=== PATIENT | male | born 1985 | race Caucasian/White ===

== ENCOUNTER 2016-11-27 15:24 | Outpatient (CLI) | payer OTHER ==
--- NOTE | 2016-11-27 16:03 | XRay Report ---
CHEST 2 VIEWS INDICATION: Left mastoiditis. Needs hyperbaric oxygen therapy. COMPARISON: None similar at this institution. FINDINGS: PA and lateral chest radiographs demonstrate normal cardiomediastinal silhouette and clear lungs, given the inspiration. Right upper extremity PICC tip along the distal SVC. Intact bones. CONCLUSION: No acute disease in the chest. Thank you for the opportunity to participate in this patient's care.
== END 2016-11-27 15:25 | disposition home or self-care (01) ==
LOC: XRAY 15:24
PROVIDERS: ATTEND Surgery
DX: H70.92 Unspecified mastoiditis, left ear (principal)
CPT/HCPCS: 71020; 99204; G0463

== ENCOUNTER 2016-11-29 10:12 | Outpatient (CLI) | payer OTHER | END 2016-11-29 10:13 | disposition home or self-care (01) | LOC: WOUND 10:12 | PROVIDERS: ATTEND Surgery | DX: M86.68 Other chronic osteomyelitis, other site (principal); Z71.6 Tobacco abuse counseling; F17.210 Nicotine dependence, cigarettes, uncomplicated | CPT/HCPCS: G0277 ×2; 99183 ==

== ENCOUNTER 2016-11-30 10:00 | Outpatient (CLI) | payer OTHER | END 2016-11-30 10:01 | disposition home or self-care (01) | LOC: WOUND 10:00 | PROVIDERS: ATTEND Internal Medicine | DX: S01.302A Unspecified open wound of left ear, initial encounter (principal); M86.68 Other chronic osteomyelitis, other site; F17.210 Nicotine dependence, cigarettes, uncomplicated; F15.90 Other stimulant use, unspecified, uncomplicated; Z71.6 Tobacco abuse counseling; X58.XXXA Exposure to other specified factors, initial encounter; Y93.89 Activity, other specified; Y92.89 Other specified places as the place of occurrence of the external cause; Y99.8 Other external cause status | CPT/HCPCS: G0277 ×2; 99183 ==

== ENCOUNTER 2016-12-01 10:12 | Outpatient (CLI) | payer OTHER | END 2016-12-01 10:13 | disposition home or self-care (01) | LOC: WOUND 10:12 | PROVIDERS: ATTEND Podiatrist | DX: M86.68 Other chronic osteomyelitis, other site (principal); F17.210 Nicotine dependence, cigarettes, uncomplicated; Z71.6 Tobacco abuse counseling | CPT/HCPCS: G0277 ×2; 99183 ==

== ENCOUNTER 2016-12-04 09:59 | Outpatient (CLI) | payer OTHER | END 2016-12-04 10:00 | disposition home or self-care (01) | LOC: WOUND 09:59 | PROVIDERS: ATTEND Internal Medicine | DX: M86.68 Other chronic osteomyelitis, other site (principal); F17.210 Nicotine dependence, cigarettes, uncomplicated | CPT/HCPCS: G0277 ×2; 99183 ==

== ENCOUNTER 2016-12-05 09:45 | Outpatient (CLI) | payer OTHER | END 2016-12-05 09:46 | disposition home or self-care (01) | LOC: WOUND 09:45 | PROVIDERS: ATTEND Surgery | DX: M86.68 Other chronic osteomyelitis, other site (principal); F17.210 Nicotine dependence, cigarettes, uncomplicated | CPT/HCPCS: G0277 ×2; 99183 ==

== ENCOUNTER 2016-12-06 10:04 | Outpatient (CLI) | payer OTHER | END 2016-12-06 10:05 | disposition home or self-care (01) | LOC: WOUND 10:04 | PROVIDERS: ATTEND Surgery | DX: M86.68 Other chronic osteomyelitis, other site (principal); Z71.6 Tobacco abuse counseling; F17.210 Nicotine dependence, cigarettes, uncomplicated | CPT/HCPCS: G0277 ×2; 99183 ==

== ENCOUNTER 2016-12-07 09:59 | Outpatient (CLI) | payer OTHER | END 2016-12-07 10:00 | disposition home or self-care (01) | LOC: WOUND 09:59 | PROVIDERS: ATTEND Internal Medicine | DX: M86.68 Other chronic osteomyelitis, other site (principal); Z71.6 Tobacco abuse counseling; F17.210 Nicotine dependence, cigarettes, uncomplicated | CPT/HCPCS: G0277 ×2; 99183 ==

== ENCOUNTER 2016-12-08 09:58 | Outpatient (CLI) | payer OTHER | END 2016-12-08 09:59 | disposition home or self-care (01) | LOC: WOUND 09:58 | PROVIDERS: ATTEND Podiatrist | DX: M86.68 Other chronic osteomyelitis, other site (principal); F17.210 Nicotine dependence, cigarettes, uncomplicated | CPT/HCPCS: G0277 ×2; 99183 ==

== ENCOUNTER 2016-12-11 13:43 | Outpatient (CLI) | payer OTHER | END 2016-12-11 13:44 | disposition home or self-care (01) | LOC: WOUND 13:43 | PROVIDERS: ATTEND Internal Medicine | DX: M86.68 Other chronic osteomyelitis, other site (principal); F17.210 Nicotine dependence, cigarettes, uncomplicated | CPT/HCPCS: G0277 ×2; 99183 ==

== ENCOUNTER 2016-12-12 10:00 | Outpatient (CLI) | payer OTHER | END 2016-12-12 10:01 | disposition home or self-care (01) | LOC: WOUND 10:00 | PROVIDERS: ATTEND Surgery | DX: M86.68 Other chronic osteomyelitis, other site (principal); F17.210 Nicotine dependence, cigarettes, uncomplicated | CPT/HCPCS: G0277 ×2; 99183 ==

== ENCOUNTER 2016-12-13 09:58 | Outpatient (CLI) | payer OTHER | END 2016-12-13 09:59 | disposition home or self-care (01) | LOC: WOUND 09:58 | PROVIDERS: ATTEND Internal Medicine | DX: M86.68 Other chronic osteomyelitis, other site (principal); F17.200 Nicotine dependence, unspecified, uncomplicated | CPT/HCPCS: G0277 ×2; 99183 ==

== ENCOUNTER 2016-12-14 10:06 | Outpatient (CLI) | payer OTHER | END 2016-12-14 10:07 | disposition home or self-care (01) | LOC: WOUND 10:06 | PROVIDERS: ATTEND Internal Medicine | DX: M86.68 Other chronic osteomyelitis, other site (principal); F17.200 Nicotine dependence, unspecified, uncomplicated | CPT/HCPCS: G0277 ×2; 99183 ==

== ENCOUNTER 2016-12-15 10:18 | Outpatient (CLI) | payer OTHER | END 2016-12-15 10:19 | disposition home or self-care (01) | LOC: WOUND 10:18 | PROVIDERS: ATTEND Podiatrist | DX: M86.68 Other chronic osteomyelitis, other site (principal); F17.200 Nicotine dependence, unspecified, uncomplicated | CPT/HCPCS: G0277 ×2; 99183 ==

== ENCOUNTER 2016-12-18 09:55 | Outpatient (CLI) | payer OTHER | END 2016-12-18 09:56 | disposition home or self-care (01) | LOC: WOUND 09:55 | PROVIDERS: ATTEND Internal Medicine | DX: M86.68 Other chronic osteomyelitis, other site (principal); F17.200 Nicotine dependence, unspecified, uncomplicated; Z71.6 Tobacco abuse counseling | CPT/HCPCS: G0277 ×2; 99183 ==

== ENCOUNTER 2016-12-19 10:15 | Outpatient (CLI) | payer OTHER | END 2016-12-19 10:16 | disposition home or self-care (01) | LOC: WOUND 10:15 | PROVIDERS: ATTEND Surgery | DX: M86.68 Other chronic osteomyelitis, other site (principal); F17.200 Nicotine dependence, unspecified, uncomplicated; Z71.6 Tobacco abuse counseling | CPT/HCPCS: G0277 ×2; 99183 ==

== ENCOUNTER 2016-12-20 09:52 | Outpatient (CLI) | payer OTHER | END 2016-12-20 09:53 | disposition home or self-care (01) | LOC: WOUND 09:52 | PROVIDERS: ATTEND Surgery | DX: M86.68 Other chronic osteomyelitis, other site (principal); F17.200 Nicotine dependence, unspecified, uncomplicated | CPT/HCPCS: G0277 ×2; 99183 ==

== ENCOUNTER 2016-12-21 08:50 | Outpatient (CLI) | payer OTHER | END 2016-12-21 08:51 | disposition home or self-care (01) | LOC: WOUND 08:50 | PROVIDERS: ATTEND Internal Medicine | DX: M86.68 Other chronic osteomyelitis, other site (principal); F17.200 Nicotine dependence, unspecified, uncomplicated | CPT/HCPCS: G0277 ×2; 99183 ==

== ENCOUNTER 2016-12-22 09:59 | Outpatient (CLI) | payer OTHER | END 2016-12-22 10:00 | disposition home or self-care (01) | LOC: WOUND 09:59 | PROVIDERS: ATTEND Internal Medicine | DX: M86.68 Other chronic osteomyelitis, other site (principal); F17.200 Nicotine dependence, unspecified, uncomplicated | CPT/HCPCS: G0277 ×2; 99183 ==

== ENCOUNTER 2016-12-25 09:32 | Outpatient (CLI) | payer OTHER | END 2016-12-25 09:33 | disposition home or self-care (01) | LOC: WOUND 09:32 | PROVIDERS: ATTEND Surgery | DX: M86.68 Other chronic osteomyelitis, other site (principal); R73.09 Other abnormal glucose; F17.200 Nicotine dependence, unspecified, uncomplicated | CPT/HCPCS: 82962; G0277; 99183 ==

== ENCOUNTER 2016-12-26 14:54 | Outpatient (CLI) | payer OTHER | END 2016-12-26 14:55 | disposition home or self-care (01) | LOC: WOUND 14:54 | PROVIDERS: ATTEND Surgery | DX: M86.68 Other chronic osteomyelitis, other site (principal); F17.200 Nicotine dependence, unspecified, uncomplicated | CPT/HCPCS: G0277 ×2; 99183 ==

== ENCOUNTER 2016-12-27 10:01 | Outpatient (CLI) | payer OTHER | END 2016-12-27 10:02 | disposition home or self-care (01) | LOC: WOUND 10:01 | PROVIDERS: ATTEND Surgery | DX: M86.68 Other chronic osteomyelitis, other site (principal); F17.200 Nicotine dependence, unspecified, uncomplicated | CPT/HCPCS: G0277 ×2; 99183 ==

== ENCOUNTER 2016-12-28 10:06 | Outpatient (CLI) | payer OTHER | END 2016-12-28 10:07 | disposition home or self-care (01) | LOC: WOUND 10:06 | PROVIDERS: ATTEND Nurse Practitioner | DX: M86.68 Other chronic osteomyelitis, other site (principal); F17.200 Nicotine dependence, unspecified, uncomplicated | CPT/HCPCS: G0277 ×2; 99183 ==

== ENCOUNTER 2016-12-29 10:24 | Outpatient (CLI) | payer OTHER | END 2016-12-29 10:25 | disposition home or self-care (01) | LOC: WOUND 10:24 | PROVIDERS: ATTEND Internal Medicine | DX: M86.68 Other chronic osteomyelitis, other site (principal); R73.09 Other abnormal glucose; F17.200 Nicotine dependence, unspecified, uncomplicated | CPT/HCPCS: 82962; G0277; 99183 ==

== ENCOUNTER 2017-01-02 10:00 | Outpatient (CLI) | payer OTHER | END 2017-01-02 10:01 | disposition home or self-care (01) | LOC: WOUND 10:00 | PROVIDERS: ATTEND Surgery | DX: M86.68 Other chronic osteomyelitis, other site (principal); F17.210 Nicotine dependence, cigarettes, uncomplicated | CPT/HCPCS: G0277 ×2; 99183 ==

== ENCOUNTER 2017-01-03 10:11 | Outpatient (CLI) | payer OTHER | END 2017-01-03 10:12 | disposition home or self-care (01) | LOC: WOUND 10:11 | PROVIDERS: ATTEND Surgery | DX: M86.68 Other chronic osteomyelitis, other site (principal); F17.200 Nicotine dependence, unspecified, uncomplicated | CPT/HCPCS: G0277 ×2; 99183 ==

== ENCOUNTER 2017-01-04 10:17 | Outpatient (CLI) | payer OTHER | END 2017-01-04 10:18 | disposition home or self-care (01) | LOC: WOUND 10:17 | PROVIDERS: ATTEND Nurse Practitioner | DX: M86.68 Other chronic osteomyelitis, other site (principal); F17.200 Nicotine dependence, unspecified, uncomplicated | CPT/HCPCS: G0277 ×2; 99183 ==

== ENCOUNTER 2017-01-05 10:08 | Outpatient (CLI) | payer OTHER | END 2017-01-05 10:09 | disposition home or self-care (01) | LOC: WOUND 10:08 | PROVIDERS: ATTEND Internal Medicine | DX: M86.68 Other chronic osteomyelitis, other site (principal); F17.200 Nicotine dependence, unspecified, uncomplicated | CPT/HCPCS: G0277 ×2; 99183 ==

== ENCOUNTER 2017-01-08 10:10 | Outpatient (CLI) | payer OTHER | END 2017-01-08 10:11 | disposition home or self-care (01) | LOC: WOUND 10:10 | PROVIDERS: ATTEND Internal Medicine | DX: M86.68 Other chronic osteomyelitis, other site (principal); F17.200 Nicotine dependence, unspecified, uncomplicated | CPT/HCPCS: G0277 ×2; 99183 ==

== ENCOUNTER 2017-01-09 10:03 | Outpatient (CLI) | payer OTHER | END 2017-01-09 10:04 | disposition home or self-care (01) | LOC: WOUND 10:03 | PROVIDERS: ATTEND Surgery | DX: M86.68 Other chronic osteomyelitis, other site (principal); F17.200 Nicotine dependence, unspecified, uncomplicated | CPT/HCPCS: G0277 ×2; 99183 ==

== ENCOUNTER 2017-01-10 09:57 | Outpatient (CLI) | payer OTHER | END 2017-01-10 09:58 | disposition home or self-care (01) | LOC: WOUND 09:57 | PROVIDERS: ATTEND Surgery | DX: M86.68 Other chronic osteomyelitis, other site (principal); Z71.6 Tobacco abuse counseling; F17.200 Nicotine dependence, unspecified, uncomplicated | CPT/HCPCS: G0277 ×2; 99183 ==

== ENCOUNTER 2017-01-11 10:08 | Outpatient (CLI) | payer OTHER | END 2017-01-11 10:09 | disposition home or self-care (01) | LOC: WOUND 10:08 | PROVIDERS: ATTEND Nurse Practitioner | DX: M86.68 Other chronic osteomyelitis, other site (principal); F17.200 Nicotine dependence, unspecified, uncomplicated | CPT/HCPCS: G0277 ×2; 99183 ==

== ENCOUNTER 2017-01-12 10:14 | Outpatient (CLI) | payer OTHER | END 2017-01-12 10:15 | disposition home or self-care (01) | LOC: WOUND 10:14 | PROVIDERS: ATTEND Internal Medicine | DX: M86.68 Other chronic osteomyelitis, other site (principal); F17.200 Nicotine dependence, unspecified, uncomplicated | CPT/HCPCS: G0277 ×2; 99183 ==

== ENCOUNTER 2017-01-16 09:59 | Outpatient (CLI) | payer OTHER | END 2017-01-16 10:00 | disposition home or self-care (01) | LOC: WOUND 09:59 | PROVIDERS: ATTEND Surgery | DX: M86.68 Other chronic osteomyelitis, other site (principal); F17.200 Nicotine dependence, unspecified, uncomplicated | CPT/HCPCS: G0277 ×2; 99183 ==

== ENCOUNTER 2017-01-17 09:57 | Outpatient (CLI) | payer OTHER | END 2017-01-17 09:58 | disposition home or self-care (01) | LOC: WOUND 09:57 | PROVIDERS: ATTEND Internal Medicine | DX: M86.68 Other chronic osteomyelitis, other site (principal); F17.200 Nicotine dependence, unspecified, uncomplicated | CPT/HCPCS: G0277 ×2; 99183 ==

== ENCOUNTER 2017-01-18 10:06 | Outpatient (CLI) | payer OTHER | END 2017-01-18 10:07 | disposition home or self-care (01) | LOC: WOUND 10:06 | PROVIDERS: ATTEND Nurse Practitioner | DX: M86.68 Other chronic osteomyelitis, other site (principal); F17.200 Nicotine dependence, unspecified, uncomplicated | CPT/HCPCS: G0277 ×2; 99183 ==

== ENCOUNTER 2017-01-19 10:17 | Outpatient (CLI) | payer OTHER | END 2017-01-19 10:18 | disposition home or self-care (01) | LOC: WOUND 10:17 | PROVIDERS: ATTEND Internal Medicine | DX: M86.68 Other chronic osteomyelitis, other site (principal); F17.200 Nicotine dependence, unspecified, uncomplicated | CPT/HCPCS: G0277 ×2; 99183 ==

== ENCOUNTER 2017-01-22 10:15 | Outpatient (CLI) | payer OTHER | END 2017-01-22 10:16 | disposition home or self-care (01) | LOC: WOUND 10:15 | PROVIDERS: ATTEND Internal Medicine | DX: M86.68 Other chronic osteomyelitis, other site (principal); Z71.6 Tobacco abuse counseling; F17.200 Nicotine dependence, unspecified, uncomplicated | CPT/HCPCS: G0277 ×2; 99183 ==

== ENCOUNTER 2017-01-23 10:12 | Outpatient (CLI) | payer OTHER | END 2017-01-23 10:13 | disposition home or self-care (01) | LOC: WOUND 10:12 | PROVIDERS: ATTEND Surgery | DX: M86.68 Other chronic osteomyelitis, other site (principal); F17.200 Nicotine dependence, unspecified, uncomplicated | CPT/HCPCS: G0277 ×2; 99183 ==

== ENCOUNTER 2017-01-24 10:04 | Outpatient (CLI) | payer OTHER | END 2017-01-24 10:05 | disposition home or self-care (01) | LOC: WOUND 10:04 | PROVIDERS: ATTEND Surgery | DX: M86.68 Other chronic osteomyelitis, other site (principal); F17.200 Nicotine dependence, unspecified, uncomplicated | CPT/HCPCS: G0277 ×2; 99183 ==

== ENCOUNTER 2017-01-25 10:10 | Outpatient (CLI) | payer OTHER | END 2017-01-25 10:11 | disposition home or self-care (01) | LOC: WOUND 10:10 | PROVIDERS: ATTEND Nurse Practitioner | DX: M86.68 Other chronic osteomyelitis, other site (principal); F17.200 Nicotine dependence, unspecified, uncomplicated | CPT/HCPCS: G0277 ×2; 99183 ==